=== PATIENT | female | born 1960 ===

== ENCOUNTER → 2020-09-24 | Outpatient (CLI) | payer OTHER ==
[~2020-09-24] MED LIST: ALLEGRA 180MG180 MG PO; ALLEGRA180 MG PO; AMBIEN 10MG10 MG PO; AMBIEN 5MG TABLE5 MG PO; ATIVAN 0.50.5 MG/TAB PO; CIPRO 500MG TA500 MG PO; CLONAZEPAM0.5 MG PO; CYMBALTA 30MG30 MG PO; CYMBALTA 60MG60 MG PO; CYMBALTA30 MG PO; FLUOCINONIDE0.05% TP; HCTZ; HCTZ 25MG TAB25 MG PO; HYDROCORT CREAM2.5% TP; LEVAQUIN 5500 MG/TAB PO; LIPITOR 10MG10 MG PO; LIPITOR10 MG PO; LISINOPRIL20 MG PO; NAPROSYN250 MG PO; NEXIUM 40MG40 MG PO; NEXIUM40 MG PO; NORCO 325 MG-51 TAB PO; PERCOCET 5/321 UDTAB PO; PYRIDIUM 100MG100 MG PO; REFRESH EYE ITCH5 ML OP; RESTORIL 1515 MG/CAP PO; RISPERIDONE0.25 MG PO; TEMAZEPAM30 MG PO; ULTRAM 50MG TAB50 MG PO; VITAMIN D31000 IU PO; ZOLOFT 100MG100 MG PO
== END | disposition still patient (30) ==
LOC: COL.RAD 10:30
DX: M47.816 Spondylosis without myelopathy or radiculopathy, lumbar region (principal); M43.16 Spondylolisthesis, lumbar region; M48.061 Spinal stenosis, lumbar region without neurogenic claudication; M51.27 Other intervertebral disc displacement, lumbosacral region

== ENCOUNTER 2022-01-09 11:15 | Outpatient (RCR) | payer OTHER | END 2022-01-16 | disposition home or self-care (01) | LOC: WSC | DX: M54.50 Low back pain, unspecified (principal) ==

== ENCOUNTER → 2023-08-17 | Outpatient (RCR) | payer OTHER | LOC: WSPT | DX: M79.606 Pain in leg, unspecified (principal); M54.9 Dorsalgia, unspecified ==